=== PATIENT | female | born 1970 | race African-American/Black ===

== ENCOUNTER 2017-02-25 15:39 | Emergency (ER) | payer BC ==
--- NOTE | ~2017-02-25 | CR93 ---
[facility] A Service of [facility] & [facility] RADIOLOGY TEXT RESULTS PATIENT: CLAUDIA HERNANDES LOCATION: CFTX : 70 UNIT #: [id number] AGE: [address]: DAMIEN COSTA SEX: F ORDER DR: [id number] [facility] [address] [place], [place] [address] [id number] MR#: [id number] Acc #: [id number] NAME: CLAUDIA HERNANDES : 1970 SEX: F STUDY DATE/TIME: 02/25/2017 15:06 UNIT: [facility] ROOM: STUDY DESCRIPTION: CR Elbow Min 3 Views Lt Attending Physician: Damien Costa A.P.R.N. Ordering Physician: Damien Costa A.P.R.N. Primary Care Physician: Nury Donnelly M.D. MEDICAL IMAGING REPORT This report is preliminary unless electronic signature is present EXAM Left elbow 3 views 02/25/2017 INDICATIONS Pain and laceration today after dog bite. COMPARISON STUDIES No comparisons. FINDINGS There is no fracture, joint effusion or dislocation. There is no radiopaque foreign body. IMPRESSION Negative. Dictated by... Benny Nova M.D. THIS IS AN ELECTRONICALLY VERIFIED REPORT Benny Nova M.D. at 02/25/2017 4:47 PM [place]/giovanni TD: 02/25/2017 16:25 JOB #: [id number] MEDICAL IMAGING REPORT Page 1 of 1 COPY
== END 2017-02-25 16:34 | disposition home or self-care (01) ==
LOC: CFTX 15:39
DX: S51.052A Open bite, left elbow, initial encounter (principal); W54.0XXA Bitten by dog, initial encounter; Y92.009 Unspecified place in unspecified non-institutional (private) residence as the place of occurrence of the external cause; Z23 Encounter for immunization
CPT/HCPCS: 73080; 90471; 90715; 99283